=== PATIENT | female | born 1965 | race Caucasian/White ===

== ENCOUNTER 2023-08-20 13:30 | Outpatient (RCR) | payer OTHER, SELFPAY ==
--- NOTE | 2023-06-21 13:38 | PTOPEVAL1 ---
Assessment and note entered by Alyssa Nicole, PT Evaluation Information Assessment Status Evaluation Diagnosis pain in right shoulder Therapy condition abnormal postures, weakness Onset December 2022 Subjective Information Woke up one morning thinking slept wrong but the pain never went away. States will have pain daily but has not progressed since it started. x-rays stated arthritis. Has been using generice voltaren and sometimes at night takes tylenol pm to sleep better. Difficulty with reaching backward, reaching far forward, and dressing, pushing passenger door open Reported Pain Level Pain Score 2: Self Report Assessment PT Clinical Summary Pt presents with right shoulder pain that has persisted for six months. Imaging shows arthritis. Patient was concerned use would worsen shoulder but is also concerned lack of use will be problematic. Pt shows negative testing for RTC issues, good RTC strength however shows poor scapular stability, decreased ROM RUE, decresaed posterior capsule extensibility, and (+) impingement testing. Pt will benefit from therapy to address deficits, educate patient on appropriate postural stability and alignment to reduce pain and allow return to PLOF without pain. Plan of Care Interventions Electrical Stimulation,Hot Pack/Cold Pack,Manual Therapy,Neuro Re-education,Patient/Caregiver Educati,Therapeutic Activities,Therapeutic Exercise,Ultrasound Other Interventions taping PT Services Indicated Yes Treatment Frequency and 1-2x weekly x 8 weeks Duration These treatments will address the objective and functional deficits as defined above. The patient will be advanced safely and appropriately in order for the patient to progress towards his/her prior level of function. Additional exercises will be introduced and as well as a comprehensive home exercise program upon discharge, if needed, ?to ensure carryover of functional gains achieved in the clinic. This treatment plan has been reviewed and agreement upon by the patient.
--- NOTE | 2023-06-21 13:39 | OPREHPOC ---
Outpatient Therapy Plan of Care This is a Multidisciplinary Plan of Care that may contain components documented by all disciplines (PT, OT, and ST.) PT Problem 1 PT Problem #1 Knowledge Deficit PT Goal 1 Goal Pt will be independent in HEP Pt will verbalize understanding of diagnosis and prognosis Target Visit 8 Progress Met PT Problem 2 PT Problem #2 Pain PT Goal 1 Goal Pt will report greatest pain level at 3/10 or less to improve ADLs Target Visit 8 PT Goal 2 Goal Pt will report resolution of pain to return to PLOF Target Visit 16 PT Problem 3 PT Problem #3 Impaired Range of Motion PT Goal 1 Goal Pt will demo full ROM RUE as compared to LUE without pain Target Visit 16 PT Problem 4 PT Problem #4 Impaired Coordination PT Goal 1 Goal Pt will demo appropriate scapular position and control in neutral Target Visit 8 PT Goal 2 Goal Pt will demo good scapular control with dynamic motion to reduce impingement during activities Target Visit 16
--- NOTE | 2023-07-21 11:24 | PTOPPROG ---
Assessment and note entered by Alyssa Nicole, PT Assessment Status Progress report Diagnosis pain in right shoulder Onset December 2022 Subjective Information States hasn't had to use the tylenol at night anymore, or the voltaren. Is taking Ibuprofen in the morning for her neck pain. Neck pain started and headache Wednesday morning and has had one since then. Has been icing at night and morning. Pt reports reaching might be getting better, might be a littler better than it used to be Still hurts with use Assessment PT Clinical Summary Pt has attended 6 sessions including evaluation. Demo's some improvements in motion, scapular awareness and postural alignment. Minor improvements in pain at the moment. Demo's thoracic spine and first rib deficits possibly effecting right shoulder impingement. Pt will benefit from cont therapy to address all deficits and improve function witout pain to meet her goals Plan of Care Interventions Electrical Stimulation,Hot Pack/Cold Pack,Manual Therapy,Neuro Re-education,Patient/Caregiver Educati,Therapeutic Activities,Therapeutic Exercise,Ultrasound Other Interventions taping PT Services Indicated Yes Treatment Frequency and Cont POC 1-2 x weekly x 4 weeks Duration These treatments will address the objective and functional deficits as defined above. The patient will be advanced safely and appropriately in order for the patient to progress towards his/her prior level of function. Additional exercises will be introduced and as well as a comprehensive home exercise program upon discharge, if needed, ?to ensure carryover of functional gains achieved in the clinic. This treatment plan has been reviewed and agreement upon by the patient.
--- NOTE | 2023-08-02 08:23 | PCPTNOTE ---
Patient called & cancelled scheduled appointment this date due to work conflicts.
--- NOTE | 2023-08-03 08:10 | PCPTNOTE ---
Therapy department called patient to cancel appointment on 07/30/23 secondary to staffing shortage.
--- NOTE | 2023-08-20 14:25 | PTOPDC ---
Assessment and note entered by Alyssa Nicole, SANAZ Assessment Status Discharge Diagnosis pain in right shoulder Onset December 2022 Subjective Information cont to have problems with reaching back into back seat of car and with certain yoga poses. Is able to dress without difficulty now. Self-perceived improvement: 85% Reported Pain Level Pain Score 0: Self Report Assessment PT Clinical Summary Pt has attended therapy consistently for her right shoulder pain. Pt has demo'd improved scapular awareness and control, improved ROM without impingement, and improved function with less pain. Pt reports feeling 85% improved overall, and only gets pain up to a 2/10 with activity. She has returned to her yoga practice as well. Her HEP has been updated and pt has been educated on when to return to therapy if necessary. Pt has met >75% of her goals with the only goals left being negligible difference from current status to goal.
== END 2023-08-20 14:46 | disposition home or self-care (01) ==
LOC: ANHHIPT 13:30
PROVIDERS: PCP Nurse Practitioner Family; Visit Provider Nurse Practitioner Family
DX: M25.511 Pain in right shoulder (principal)
CPT/HCPCS: 97014; 97110; 97112; 97140; 97161; 97750; G0283